=== PATIENT | male | born 1980 | race Caucasian/White ===

== ENCOUNTER 2024-09-03 13:29 | Inpatient (IN) | payer BC ==
[2024-09-03 14:09] LABS: BASOPHILS ABSOLUTE AUTO 0.03 K/uL (0.00-0.20); BASOPHILS PERCENT AUTO 0.6 % (0.0-2.0); EOSINOPHILS ABSOLUTE AUTO 0.02 K/uL (0.00-0.50); EOSINOPHILS PERCENT AUTO 0.4 % (0.0-5.0); HEMATOCRIT 48.7 % (39.0-49.0); HEMOGLOBIN 16.6 g/dL (13.1-16.8); IMMATURE GRAN ABSOLUTE AUTO 0.01 10^3/uL (0.00-0.04); IMMATURE GRAN PERCENT AUTO 0.2 % (0.0-0.4); LYMPHOCYTES ABSOLUTE AUTO 0.82 K/uL (0.50-3.50); LYMPHOCYTES PERCENT AUTO 15.2 % (10.0-50.0); MEAN CORPUSCULAR HGB CONC 34.1 g/dL (31.7-36.0); MONOCYTES ABSOLUTE AUTO 0.47 K/uL (0.00-1.00); MONOCYTES PERCENT AUTO 8.7 % (2.0-14.0); NEUTROPHILS ABSOLUTE AUTO 4.05 K/uL (1.40-7.00); NEUTROPHILS PERCENT AUTO 74.9 % (45.0-80.0); PLATELET COUNT,PLT 220 K/uL (150-350); RED BLOOD CELL COUNT 5.18 M/uL (4.33-5.41); RED CELL DISTRIBUTION WIDTH 13.4 % (11.2-14.1); WHITE BLOOD CELL COUNT,WBC 5.4 K/uL (4.0-10.2)
[2024-09-03 14:27] LABS: PROTHROMBIN TIME 10.1 SEC (9.0-11.1)
[2024-09-03 14:31] LABS: ALANINE AMINOTRANSFERASE,ALT 22 U/L (12-78); ALKALINE PHOSPHATASE 99 IU/L (46-116); ANION GAP 10.7 meq/L (7-15); ASPARTATE AMNIOTRANSFERASE,AST 21 U/L (15-37); BILIRUBIN TOTAL 0.4 mg/dL (0.2-1.0); BLOOD UREA NITROGEN,BUN 10 mg/dL (7-18); CALCIUM 8.9 mg/dL (8.5-10.1); CARBON DIOXIDE,CO2 34.9 mmol/L (21.0-32.0); CHLORIDE,CL 103 mmol/L (98-107); CREATININE 0.87 mg/dL (0.51-1.17); ETHANOL BLOOD MEDICAL 0.263 g/dL (0.000-0.080); GLUCOSE RANDOM 145 mg/dL (70-99); MAGNESIUM 1.9 mg/dL (1.8-2.4); POTASSIUM,K 4.6 mmol/L (3.5-5.1); PROTEIN TOTAL,TP 7.7 g/dL (6.4-8.2); SODIUM,NA 144 mmol/L (136-145)
[2024-09-03 14:32] LABS: ESTIMATED GFR 109 mL/min (>=60)
[2024-09-03 14:37] LABS: AMPHETAMINES SCREEN, URINE NEGATIVE (NEGATIVE); BARBITURATE SCREEN,URINE NEGATIVE (NEGATIVE); BENZODIAZEPINES SCREEN,URINE NEGATIVE (NEGATIVE); COCAINE METABOLITES,URINE NEGATIVE (NEGATIVE); EDDP,URINE SCREEN NEGATIVE (NEGATIVE); METHAMPHETAMINES SCREEN, URINE NEGATIVE (NEGATIVE); OXYCODONE SCREEN,URINE NEGATIVE (NEGATIVE); TCA SCREEN,URINE NEGATIVE (NEGATIVE); THC SCREEN,URINE 50 NG/ML POSITIVE (NEGATIVE)
[2024-09-03 14:38] LABS: BUPRENORPHINE SCREEN,URINE NEGATIVE (NEGATIVE)
[2024-09-03] MEDS ORDERED: MVI, Adult with Vitamin K 10 ML in Dextrose 5%-Lactated Ringers 1,000 ML IV SCH (15:15)
[2024-09-03] MEDS: LORazepam 2 MG/ML SDV IVPUSH PRN (15:17)
[2024-09-03] MEDS: LORazepam 2 MG/ML SDV IVPUSH ONE (15:18)
[2024-09-03] MEDS: Ondansetron 4 MG/2 ML SDV IVPUSH PRN (16:25)
[2024-09-03] MEDS: Dextrose 5%-Lactated Ringers 1,000 ML IV SCH (16:26)
[2024-09-03] MEDS: Multivitamin Tab PO SCH (17:44)
[2024-09-03] MEDS: Folic Acid 1 MG Tab PO SCH (17:45)
[2024-09-03] MEDS: Thiamine 200 MG/2 ML MDV IVPUSH SCH (17:45)
[2024-09-03 19:18] LABS: ANION GAP 8.5 meq/L (7-15); CALCIUM 8.2 mg/dL (8.5-10.1); CARBON DIOXIDE,CO2 29.5 mmol/L (21.0-32.0); CREATININE 0.74 mg/dL (0.51-1.17); EST CRCL DRUG DOSING (CG) 127.39 mL/min; MAGNESIUM 1.5 mg/dL (1.8-2.4); POTASSIUM,K 3.5 mmol/L (3.5-5.1)
[2024-09-03] MEDS: LORazepam 1 MG Tab PO PRN (20:49)
[2024-09-03] MEDS: Ondansetron 4 MG Tab.DIS PO PRN (20:50)
[2024-09-03] MEDS: Lactated Ringers 1,000 ML IV SCH (21:30)
[2024-09-04] MEDS: Acetaminophen 325 MG Tab PO PRN (04:40)
[2024-09-04 08:10] LABS: BASOPHILS ABSOLUTE AUTO 0.02 K/uL (0.00-0.20); BASOPHILS PERCENT AUTO 0.5 % (0.0-2.0); EOSINOPHILS ABSOLUTE AUTO 0.01 K/uL (0.00-0.50); EOSINOPHILS PERCENT AUTO 0.3 % (0.0-5.0); HEMATOCRIT 41.9 % (39.0-49.0); HEMOGLOBIN 14.3 g/dL (13.1-16.8); IMMATURE GRAN ABSOLUTE AUTO 0.01 10^3/uL (0.00-0.04); IMMATURE GRAN PERCENT AUTO 0.3 % (0.0-0.4); LYMPHOCYTES ABSOLUTE AUTO 0.98 K/uL (0.50-3.50); LYMPHOCYTES PERCENT AUTO 25.4 % (10.0-50.0); MEAN CORPUSCULAR HGB CONC 34.1 g/dL (31.7-36.0); MEAN CORPUSCULAR VOLUME 93.7 fL (84.0-98.0); MONOCYTES ABSOLUTE AUTO 0.44 K/uL (0.00-1.00); MONOCYTES PERCENT AUTO 11.4 % (2.0-14.0); NEUTROPHILS PERCENT AUTO 62.1 % (45.0-80.0); PLATELET COUNT,PLT 175 K/uL (150-350); RED BLOOD CELL COUNT 4.47 M/uL (4.33-5.41); WHITE BLOOD CELL COUNT,WBC 3.9 K/uL (4.0-10.2)
[2024-09-04 08:40] LABS: PROTHROMBIN TIME 10.3 SEC (9.0-11.1)
[2024-09-04 08:46] LABS: ALBUMIN 3.3 g/dL (3.4-5.0); ANION GAP 6.2 meq/L (7-15); BILIRUBIN TOTAL 0.7 mg/dL (0.2-1.0); CALCIUM 8.7 mg/dL (8.5-10.1); CARBON DIOXIDE,CO2 31.8 mmol/L (21.0-32.0); CREATININE 0.98 mg/dL (0.51-1.17); EST CRCL DRUG DOSING (CG) 96.19 mL/min; MAGNESIUM 1.5 mg/dL (1.8-2.4); POTASSIUM,K 3.8 mmol/L (3.5-5.1); PROTEIN TOTAL,TP 6.3 g/dL (6.4-8.2)
[2024-09-04] MEDS: Magnesium Sulf/Wat 2 GM/50 mL 2 GM in Premix Bag 1 BAG IV ONE (21:20)
[2024-09-04] MEDS: Magnesium Chloride 64 MG Tab.ER PO ONE (21:49)
[2024-09-05] MEDS: Thiamine 100 MG Tab PO ONE ×2 (02:15→08:14)
[2024-09-05 08:03] LABS: BASOPHILS ABSOLUTE AUTO 0.03 K/uL (0.00-0.20); BASOPHILS PERCENT AUTO 0.9 % (0.0-2.0); EOSINOPHILS ABSOLUTE AUTO 0.05 K/uL (0.00-0.50); EOSINOPHILS PERCENT AUTO 1.5 % (0.0-5.0); HEMATOCRIT 43.5 % (39.0-49.0); HEMOGLOBIN 15.1 g/dL (13.1-16.8); IMMATURE GRAN ABSOLUTE AUTO 0.01 10^3/uL (0.00-0.04); IMMATURE GRAN PERCENT AUTO 0.3 % (0.0-0.4); LYMPHOCYTES ABSOLUTE AUTO 1.17 K/uL (0.50-3.50); LYMPHOCYTES PERCENT AUTO 34.4 % (10.0-50.0); MEAN CORPUSCULAR HEMOGLOBIN 32.3 pg (28.2-33.3); MEAN CORPUSCULAR HGB CONC 34.7 g/dL (31.7-36.0); MEAN CORPUSCULAR VOLUME 92.9 fL (84.0-98.0); MONOCYTES ABSOLUTE AUTO 0.46 K/uL (0.00-1.00); MONOCYTES PERCENT AUTO 13.5 % (2.0-14.0); NEUTROPHILS ABSOLUTE AUTO 1.68 K/uL (1.40-7.00); NEUTROPHILS PERCENT AUTO 49.4 % (45.0-80.0); PLATELET COUNT,PLT 177 K/uL (150-350); RED BLOOD CELL COUNT 4.68 M/uL (4.33-5.41); RED CELL DISTRIBUTION WIDTH 12.8 % (11.2-14.1); WHITE BLOOD CELL COUNT,WBC 3.4 K/uL (4.0-10.2)
[2024-09-05 08:17] LABS: ALBUMIN 3.4 g/dL (3.4-5.0); BILIRUBIN TOTAL 0.5 mg/dL (0.2-1.0); CALCIUM 8.7 mg/dL (8.5-10.1); CARBON DIOXIDE,CO2 32.8 mmol/L (21.0-32.0); CREATININE 0.88 mg/dL (0.51-1.17); EST CRCL DRUG DOSING (CG) 107.12 mL/min; POTASSIUM,K 3.8 mmol/L (3.5-5.1)
[2024-09-05 08:26] LABS: PROTHROMBIN TIME 9.6 SEC (9.0-11.1)
== END 2024-09-05 08:58 | disposition home or self-care (01) | DRG 775 ==
LOC: LL.ED 13:29 → LL.MS 15:23 → UNDOADMIN 15:23 → LL.MS 15:25
PROVIDERS: ADMIT Physician Assistant; ATTEND Physician Assistant
PROC: HZ2ZZZZ Detoxification Services for Substance Abuse Treatment (ICD-10-PCS; principal; 2024-09-03)
DX: F10.930 Alcohol use, unspecified with withdrawal, uncomplicated (principal); G47.30 Sleep apnea, unspecified; K21.9 Gastro-esophageal reflux disease without esophagitis; R56.9 Unspecified convulsions; F41.9 Anxiety disorder, unspecified; S09.90XA Unspecified injury of head, initial encounter; F32.A Depression, unspecified; E86.0 Dehydration; Z72.0 Tobacco use; Z98.890 Other specified postprocedural states
CPT/HCPCS: 36415; 70450; 80048; 80053; 80305-QW; 80307; 82150; 82947; 83690; 83735; 85025; 85610; 93005; 93010; A9270-GY; J2060; J2405; J3411; J3475; J7120; J7121